=== PATIENT | female | born 1985 | race Hispanic/Latino ===

== ENCOUNTER 2018-07-24 14:30 | Outpatient (CLI) | payer MEDICAID ==
--- NOTE | 2018-07-24 15:46 | ULT ---
PELVIC ULTRASOUND: Date: 07/24/18 HISTORY: Missed . FINDINGS: Multiple transabdominal and endovaginal sonographic images of the pelvis are obtained. The uterus measures 11.3 cm x 5.1 cm x 7.6 cm. There is a fluid collection within the endometrial can al with a small amount of echogenic material seen which may represent a faintly visualized pole . Cardiac Doppler in this region does demonstrate heart tones, although the heart tones a re diminished at 65 beats/minute. The mean sac diameter is 3.19 cm, which corresponds to gestational age by ultrasound of 8 weeks and 3 days. However, the crown-rump length measures 0.82 cm, which corre sponds to gestational age by ultrasound of 6 weeks and 5 days. This does represent a discrepancy. Fin dings are suggestive of an early intrauterine gestation and the diminished heart tones may be r elated to early intrauterine gestation. Continued short interval follow-up is recommended. The ovaries demonstrate a normal sonographic appearance bilaterally. The right ovary measures 2.6 cm x 2.2 cm x 2.5 cm. The left ovary measures 2.9 cm x 2.1 cm x 2.9 cm. Doppler evaluation with spectral analysis and color flow evaluation demonstrates arterial and venous flow within the left ovary with suggestion of arterial waveform within the right ovary as well. No free fluid is seen in the cul-de-sac. IMPRESSION: Fluid collection in the endometrial canal with suggestion of a small pole. However, there is di screpancy in gestational age by measurement of the crown-rump length as well as mean sac diameter, as described above, with gestational age by crown-rump length of 6 weeks and 5 days, and gestational ag e by mean sac diameter of 8 weeks and 3 days. In addition, heart tones are detected, but are di minished at 65 beats/minute. Findings may be related to an early intrauterine gestation and continued follow-up evaluation is recommended. Ultrasound examination in 1 week is recommended. POS: [facility]
== END 2018-07-24 14:31 | disposition home or self-care (01) ==
LOC: SCSULT 14:30
PROVIDERS: ATTEND Nurse Practitioner
DX: Z34.91 Encounter for supervision of normal pregnancy, unspecified, first trimester (principal); Z3A.08 8 weeks gestation of pregnancy
CPT/HCPCS: 76856

== ENCOUNTER 2018-09-17 10:29 | Inpatient (IN) | payer MEDICAID, OTHER, SELFPAY ==
[2018-09-17 11:17] LABS: #Basophils 0.1 thou/uL (0.0-0.2); #Eosinphils 0.1 thou/uL (0.0-0.7); #Lymphocytes 0.6 thou/uL (1.20-3.40); #Monocytes 0.4 thou/uL (0.11-0.59); #Neutrophils 13.7 thou/uL (1.40-6.50); %Basophils 0.4 % (0.0-1.0); %Eosinophils 0.4 % (0.0-10.0); %Monocytes 2.6 % (0.0-10.0); %Neutrophils 92.6 % (42.0-75.0); Hemoglobin 12.7 g/dL (12.0-16.0); Mean Corpuscular Hemoglobin 31.1 pg (27.0-31.0); Mean Platelet Volume 7.4 fL (7.4-10.4); Platelet Count 218 thou/uL (130-400); RBC Distribution Width 11.7 % (11.5-14.5); White Blood Cell (WBC) Count 14.7 thou/uL (4.8-10.8)
[2018-09-17] MEDS ORDERED: Ondansetron PF 4 MG/2 ML Vial ONE ×2 (11:27→14:38)
[2018-09-17 11:28] LABS: ALT (SGPT) 23 U/L (8-55); AST (SGOT) 26 U/L (5-34); Albumin 3.8 g/dL (3.5-5.0); Alkaline Phosphatase 95 U/L (40-150); Anion Gap 13 mmol/L (10-20); BUN (Urea Nitrogen) 9 mg/dL (7.0-18.7); Bilirubin, Total 0.2 mg/dL (0.2-1.2); CK (CPK) 30 U/L (29-168); Calc. Creatinine Clearance 0 mL/min (70-130); Calcium 8.7 mg/dL (7.8-10.44); Carbon Dioxide 19 mmol/L (22-29); Chloride 106 mmol/L (98-107); Estimated GFR-MDRD Greater than 90; Globulin 2.8 g/dL (2.4-3.5); Glucose 195 mg/dL (70-105); Potassium 3.9 mmol/L (3.5-5.1); Protein, Total 6.6 g/dL (6.0-8.3); Sodium 134 mmol/L (136-145)
[2018-09-17] MEDS ORDERED: Ketorolac Tromethamine 30 MG/ML VIAL ONE (11:29)
[2018-09-17 11:33] LABS: CKMB 0.4 ng/mL (0-6.6); Troponin I Less than 0.010 ng/mL (< 0.028)
[2018-09-17 11:45] LABS: Lactate 1.48 mmol/L (0.50-2.20)
--- NOTE | 2018-09-17 12:17 | RAD ---
PORTABLE CHEST: HISTORY: Chest pain with deep breaths. FINDINGS: Heart size is upper limits of normal for technique. Mediastinal structures are unremarkable. The ariana ngs are clear of any infiltrates. IMPRESSION: No acute changes. Borderline heart size. POS: [facility]
[2018-09-17 12:33] LABS: BHCG - Serum POSITIVE (NEGATIVE); Pregs Control Background? CLEAR/WHITE (CLR/WHITE); Pregs Control Bar Appear? YES (CONTROL BAR)
[2018-09-17] MEDS ORDERED: Acetaminophen 500 MG TAB ONE (12:36)
[2018-09-17 12:59] LABS: Bilirubin Negative (Negative); Blood, Urine Large (Negative); Clarity CLEAR (Clear); Glucose, Urine (Dipstick) Negative (Negative); Leukocyte Moderate (Negative); Nitrite Negative (Negative); Protein, Urine (Dipstick) Negative (Neg-Trace); Specific Gravity, Urine 1.012 (1.002-1.036); Urobilinogen 0.2 mg/dL (0.2-1.0)
[2018-09-17 13:01] LABS: Bacteria/HPF None Seen HPF (None Seen); Hyaline Casts/LPF 0-3 HYALINE CAST LPF (0-3 Hyaline); Squamous Epithelial 0-3 HPF (0-3)
[2018-09-17] MEDS ORDERED: Iopamidol 370 76% 100 ML VIAL ONE (14:26)
--- NOTE | 2018-09-17 14:31 | CT ---
CT ANGIO OF CHEST PERFORMED WITH INTRAVENOUS CONTRAST ENHANCEMENT WITH 3D RECONSTRUCTIONS: HISTORY: Shortness of breath with deep breathing. FINDINGS: The lungs showed some subsegmental atelectatic change in the bases. No pulmonary nodules or pleural effusions. There is no significant mediastinal or hilar adenopathy noted. The thoracic aorta is normal in calibe r. Some motion artifact degrades detail. There is fair pulmonary artery opacification. Peripheral e mboli are not excluded, but I do not see evidence for pulmonary embolus. Visualized liver parenchyma shows no focal findings. The gallbladder has been removed. IMPRESSION: No CT evidence for pulmonary embolus. POS: [facility]
[2018-09-17] MEDS ORDERED: PROPOFOL 200 MG/20 ML VIAL ONE (14:38)
[2018-09-17] MEDS ORDERED: Lidocaine 1% PF 5 ML VIAL ONE (14:38)
--- NOTE | 2018-09-17 15:11 | ULT ---
PELVIC ULTRASOUND: HISTORY: The patient has tried medication after being diagnosed with ectopic . The patient has been bleeding for 15 days. COMPARISON: A 07/24/2018 examination which showed an intrauterine gestational sac with a small pole which wa s discrepant in size as compared to the sac. FINDINGS: There is no ectopic demonstrated on that examination. Real-time imaging of the pelvis was obtained transabdominally. This shows a cystic structure in the uterus is no longer present. The uterus measures 4.3 x 5.7 x 10.9 cm. Endometrium is slightly thick ened and measuring as much as 1.7 cm. The right and left adnexa are normal in appearance. IMPRESSION: Slightly heterogeneous endometrium. The gestational sac and pole seen on the previous examinat ion are no longer visualized. The heterogeneity to the endometrium could indicate some retained prod ucts, it could [id number] residual blood. No signs of ectopic. POS: [facility]
[2018-09-17] MEDS ORDERED: Fentanyl 100 MCG/2 ML VIAL ONE ×2 (15:27→18:01)
[2018-09-17] MEDS ORDERED: Ondansetron PF 4 MG/2 ML Vial IVP PRN (15:49)
[2018-09-17] MEDS ORDERED: Clindamycin/D5W 900 mg/50 ml Premix Bag ONE (15:58)
[2018-09-17] MEDS ORDERED: Gentamicin 80 MG/2 ML VIAL ONE (15:58)
--- NOTE | 2018-09-17 16:16 | PDOC.FPRHP ---
- History of Present Illness Chief Complaint: chills, sweats History of Present Illness: This is a 33 female w/ 2 previous C/S who comes in with chief complaint of chills and sweats for 3 days. Says she has had a Tmax of 102.1 at home. Has been having abdominal pain during this time. She has had nausea but no vomiting. Has had 3 episodes of diarrhea per day for the last few days. She states she is having some chest pain which comes and goes, substernal, nothing makes it better or worse, no radiation. She was given misoprostil for missed on 08/28/[address] London and has had vaginal bleeding since she started per her report. 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 denies: palpitation, edema Gastrointestinal: reports: nausea, diarrhea, abdominal pain. denies: vomiting, GI bleeding Genitourinary: denies: dysuria, polyuria Skin: denies: rashes, lesions Musculoskeletal: denies: pain, tenderness Neurological: denies: numbness, syncope, weakness Psychological: denies: anxiety, depression - Vital signs BP: 106/65 HR: 90 RR: 16 Tmax: 98.5 Pox: 99% on RA - Physical Exam Constitutional: NAD, awake, alert and oriented HEENT: normocephalic and atraumatic, PERRLA Neck: supple Heart: RRR, normal S1/S2, no murmurs/rubs/gallops, pulses present Lungs: CTAB, no respiratory distress, good air movement Abdomen: soft, non-tender, bowel sounds present Musculoskeletal: normal structure, normal tone Neurological: no focal deficit, CN II-XII intact Skin: no rash/lesions, capillary refill <2 seconds Heme/Lymphatic: other (see hpi) FMR H&P: Results - Labs Result Diagrams: 09/17/18 10:50 09/17/18 10:50 Lab results: WBC 14.7 thou/uL (4.8-10.8) H 09/17/18 10:50 Hgb 12.7 g/dL (12.0-16.0) 09/17/18 10:50 Hct 38.5 % (36.0-47.0) 09/17/18 10:50 MCV 94.0 fL (78.0-98.0) 09/17/18 10:50 Plt Count 218 thou/uL (130-400) 09/17/18 10:50 Neutrophils % 92.6 % (42.0-75.0) H 09/17/18 10:50 Sodium 134 mmol/L (136-145) L 09/17/18 10:50 Potassium 3.9 mmol/L (3.5-5.1) 09/17/18 10:50 Chloride 106 mmol/L (98-107) 09/17/18 10:50 Carbon Dioxide 19 mmol/L (22-29) L 09/17/18 10:50 BUN 9 mg/dL (7.0-18.7) 09/17/18 10:50 Creatinine 0.71 mg/dL (0.6-1.1) 09/17/18 10:50 Glucose 195 mg/dL (70-105) H 09/17/18 10:50 Lactic Acid 2.9 mmol/L (0.5-2.2) H 09/17/18 11:33 Calcium 8.7 mg/dL (7.8-10.44) 09/17/18 10:50 Total Bilirubin 0.2 mg/dL (0.2-1.2) 09/17/18 10:50 AST 26 U/L (5-34) 09/17/18 10:50 ALT 23 U/L (8-55) 09/17/18 10:50 Alkaline Phosphatase 95 U/L (40-150) 09/17/18 10:50 Creatine Kinase 30 U/L (29-168) 09/17/18 10:50 CK-MB (CK-2) 0.4 ng/mL (0-6.6) 09/17/18 10:50 Serum Total Protein 6.6 g/dL (6.0-8.3) 09/17/18 10:50 Albumin 3.8 g/dL (3.5-5.0) 09/17/18 10:50 Urine Ketones Trace mg/dL (Negative) H 09/17/18 12:31 Urine Blood Large (Negative) H 09/17/18 12:31 Urine Nitrite Negative (Negative) 09/17/18 12:31 Ur Leukocyte Esterase Moderate (Negative) H 09/17/18 12:31 Urine RBC 11-20 HPF (0-3) H 09/17/18 12:31 Urine WBC 7-10 HPF (0-3) H 09/17/18 12:31 Ur Squamous Epith Cells 0-3 HPF (0-3) 09/17/18 12:31 Urine Bacteria None Seen HPF (None Seen) 09/17/18 12:31 FMR H&P: A/P - Problem List (1) Missed Current Visit: Yes Status: Acute Code(s): O02.1 - MISSED (2) Endometritis Current Visit: Yes Status: Acute Code(s): N71.9 - INFLAMMATORY DISEASE OF UTERUS, UNSPECIFIED - Plan # Endometritis 2/2 missed - TVUS shows possible retained products but pole as noted on prior US, no ectopic - hcg 235, has been on misoprostil 2-3 weeks - start Gentamcin, Clinda - Bcx, Ucx taken - Will take patient to OR for D&C # Sepsis 2/2 endometritis - fluid resuscitation - Abx as above - wbc 14.7, P90, fever at home Fluids: LR, s/p 2L in Ed Diet: NPO until OR PPx: scds Dispo: 24 hours pending clinical status FMR H&P: Upper Level - Plan Date/Time: 09/17/18 1614 I, [], have evaluated this patient and agree with findings/plan as outlined by internet systems administrator resident. Pertinent changes/additions are listed here. Attending Addendum - Attending Addendum Date/Time: 09/17/18 [id number] I personally evaluated the patient and discussed the management with Dr. Delgado. I agree with the History, Examination, Assessment and Plan documented above with any addition or exceptions noted below. 33 yo LAF s/p misprostol 2 weeks ago for presumed missed AB. Presents with flu like sxs. and cramping. USG c/w possible retained POCs. Will start ABX and proceed with D&C. BC and UC pending. Consent on chart, risks and benefits discussed.
[2018-09-17 16:26] LABS: Lactic Acid 1.1 mmol/L (0.5-2.2)
[2018-09-17] MEDS ORDERED: Oxytocin 10 UNITS/ML VIAL ONE ×2 (18:26→18:27)
[2018-09-17] MEDS ORDERED: Misoprostol 200 MCG TAB ONE (18:31)
[2018-09-17] MEDS ORDERED: Morphine 2 MG/ML SYRINGE SLOW IVP PRN (19:40)
[2018-09-17] MEDS: Lactated Ringer's 1,000 ML IV SCH (20:47)
[2018-09-17] MEDS: Clindamycin/D5W 900 MG in Premix Bag 1 BAG IVPB SCH (20:47)
[2018-09-17] MEDS: Gentamicin 80 MG/100 ML BAG IVPB SCH (21:35)
--- NOTE | 2018-09-17 22:51 | OP ---
DATE OF PROCEDURE: 09/17/2018 SURGEON: Danilo Crouch MD T[facility]ILLER SURGEON: Amadou Delgado MD, resident physician. PREOPERATIVE DIAGNOSES: 1. Postabortal endometritis. 2. Suspected retained products of conception. POSTOPERATIVE DIAGNOSES: 1. Postabortal endometritis. 2. Suspected retained products of conception. PROCEDURE: Suction curettage. ANESTHESIA: IV sedation with LMA. ESTIMATED BLOOD LOSS: 150 mL. COMPLICATIONS: None. FINDINGS: 1. 8 to 10-week size uterus. 2. Suspected products of conception obtained upon suction curettage. MEDICATIONS GIVEN: 1. 40 units of Pitocin in 500 mL IV fluid. 2. Cytotec 800 mg per rectum postoperatively. TECHNIQUE IN DETAIL: After good IV sedation with LMA was achieved, the patient was prepped and drape d in the usual sterile fashion in the dorsal lithotomy position using the Edwin stirrups. Bimanual e xam was performed after the bladder was drained. The uterus was 8 to 10 weeks in size. A single-tooth tenaculum was used to grasp the cervix after a weighted speculum was placed. The cerv ix was widely open and required no dilation. A 9-mm curved Vacurette was placed in the uterine cavit y to the level of the fundus. Suction curettage was then performed. A moderate amount of products o f conception were obtained. A sharp curet was then passed through all quadrants of the uterus and no remaining placental fragments were seen. The patient was given Pitocin 40 units at the beginning of the suction curettage and 800 mg of Cytotec was placed rectally as she had had some oozing after the procedure. A small amount of bleeding was seen from a tenaculum site and this was stopped using a s gurpreet suture of 3-0 chromic. Sponge, lap, and needle counts were correct at the conclusion of the procedure. The patient tolerate d the procedure well and was awakened and taken to the recovery room in good condition.
[2018-09-18] MEDS: Clindamycin/D5W 900 MG in Premix Bag 1 BAG IVPB SCH ×4 (00:08→23:49)
[2018-09-18] MEDS: Ibuprofen 800 MG TAB PO PRN ×4 (00:39→20:57)
[2018-09-18] MEDS: Gentamicin 80 MG/100 ML BAG IVPB SCH ×4 (01:27→23:49)
[2018-09-18] MEDS: Lactated Ringer's 1,000 ML IV SCH ×3 (05:41→15:10)
[2018-09-18 05:48] LABS: Anion Gap 8 mmol/L (10-20); BUN (Urea Nitrogen) 5 mg/dL (7.0-18.7); Calc. Creatinine Clearance 0 mL/min (70-130); Carbon Dioxide 23 mmol/L (22-29); Chloride 108 mmol/L (98-107); Estimated GFR-MDRD Greater than 90; Glucose 97 mg/dL (70-105); Potassium 3.5 mmol/L (3.5-5.1); Sodium 135 mmol/L (136-145)
[2018-09-18 05:51] LABS: #Eosinphils 0.1 thou/uL (0.0-0.7); #Lymphocytes 1.8 thou/uL (1.20-3.40); #Monocytes 0.9 thou/uL (0.11-0.59); #Neutrophils 6.3 thou/uL (1.40-6.50); %Basophils 0.2 % (0.0-1.0); %Eosinophils 0.8 % (0.0-10.0); %Lymphocytes 20.3 % (21.0-51.0); %Monocytes 9.5 % (0.0-10.0); %Neutrophils 69.2 % (42.0-75.0); Hemoglobin 9.8 g/dL (12.0-16.0); Mean Corpuscular HGB CONC 32.3 g/dL (32.0-36.0); Mean Corpuscular Hemoglobin 30.3 pg (27.0-31.0); Mean Corpuscular Volume 93.8 fL (78.0-98.0); Mean Platelet Volume 7.7 fL (7.4-10.4); Platelet Count 125 thou/uL (130-400); RBC Distribution Width 11.7 % (11.5-14.5); Red Blood Cell (RBC) Count 3.24 mill/uL (4.20-5.40); White Blood Cell (WBC) Count 9.1 thou/uL (4.8-10.8)
--- NOTE | 2018-09-18 06:47 | PDOC.EVN ---
Event Note - Event Note Event Note: POD#1 Resting, AMADO from earlier resolving post Motrin. VS: 110/61, 101, 18, 98.7 Abdomen soft and NT. Lochia small. Plan: Cont. Gent/Clinda x 3 doses postop, likely home this PM.
[2018-09-18] MEDS: Acetaminophen 500 MG TAB PO PRN ×3 (08:45→23:50)
[2018-09-18 10:30] VITALS: BMI 27.1
[2018-09-18] MEDS ORDERED: HYDROcodone/Acetaminophen 5/325 mg Tablet PO PRN (15:37)
[2018-09-18] MEDS ORDERED: Clindamycin/D5W 900 MG in Premix Bag 1 BAG IVPB SCH (22:00)
[2018-09-18] MEDS ORDERED: Gentamicin 80 MG/2 ML VIAL IM SCH (22:00)
[2018-09-19] MEDS ORDERED: Penicillin G 2.5 MILL.units 2.5 MILL.UNITS in Premix Bag 1 BAG IVPB SCH ×2 (06:00→08:00)
--- NOTE | 2018-09-19 08:07 | PRG ---
DATE OF SERVICE: 09/19/2018 TIME OF SERVICE: 0715 SUBJECTIVE: The patient is resting comfortably. She complains only of slight discomfort. She has b een afebrile throughout the day and her white count decreased yesterday. Her white count has come do wn to normal limits. PHYSICAL EXAMINATION: VITAL SIGNS: female resting comfortably. ABDOMEN: Reveals a slightly tender suprapubic area. No rebound, no guarding, no CVA tenderness. __ ___ LABORATORY DATA: Microbiology is positive for gram positive cocci in chains. Characterization [facility] IMPRESSION: Status post septic with possible group A strep in two blood cultures. PLAN: We will continue clindamycin, added to antibiotic pictures and we will discuss with Dr. Crouch who is taking over the OB Hospitalist. He may decide to consult ID regarding IV versus oral a ntibiotic therapy and possible discharge home.
[2018-09-19] MEDS: Clindamycin/D5W 900 MG in Premix Bag 1 BAG IVPB SCH ×2 (08:15→16:02)
[2018-09-19] MEDS: Ibuprofen 800 MG TAB PO PRN ×2 (08:19→20:51)
[2018-09-19] MEDS: Lactated Ringer's 1,000 ML IV SCH ×3 (09:28→18:08)
[2018-09-19] MEDS: Gentamicin 80 MG/100 ML BAG IVPB SCH ×2 (09:57→16:37)
[2018-09-19] MEDS: Penicillin G 2.5 MILL.units 2.5 MILL.UNITS in Premix Bag 1 BAG IVPB SCH ×2 (12:24→17:47)
--- NOTE | 2018-09-19 15:56 | PDOC.EVN ---
Event Note - Event Note Event Note: BC x2 return each with Peptostreptococcus. VSS She remains afebrile. Discussed with Dr. Larkin by phone. Will discontinue PCN, Gent and Clinda tonight. Will begin Amoxicillin 1 gram q 8 hours and discharge in AM.
[2018-09-19 16:53] LABS: Reference Lab Name LABCORP
[2018-09-19 16:54] LABS: Ref Lab Test Ordered AERO + ANAEROB SUSCP
[2018-09-19] MEDS: AMOXicillin 250 MG CAP PO SCH (20:51)
[2018-09-20] MEDS: AMOXicillin 250 MG CAP PO SCH (03:35)
--- NOTE | 2018-09-20 06:41 | PDOC.EVN ---
Event Note - Event Note Event Note: Feels very well since discontinuing IV ABX last PM. No c/o. VSS AF. Abdomen is soft. Path c/w POCs, no molar changes seen. Plan; DC home on Amoxicillin 1 gm PO TID x 10 days, RTC with Dr. London in 2 weeks.
[2018-09-20 07:45] VITALS: BP 123/67; TEMP 97.8
[2018-09-20] MEDS: Ibuprofen 800 MG TAB PO PRN (07:45)
--- NOTE | 2018-09-20 08:03 | DIS ---
DATE OF ADMISSION: 09/17/2018 DATE OF DISCHARGE: 09/20/2018 ADMITTING DIAGNOSES: 1. Incomplete . 2. Sepsis. DISCHARGE DIAGNOSES: 1. Incomplete . 2. Sepsis. 3. Status post suction dilatation and curettage and IV antibiotic therapy. ADMITTING PHYSICIAN: Danilo Crouch M.D. REGULAR PHYSICIAN: Sukhwinder London M.D. PATIENT DESCRIPTION/HOSPITAL COURSE: Ms. Ram is a 33-year-old G4, P3 who present ed to the emergency room on 09/17/2018 complaining of 24 hours of flu-like symptoms with temperature to 102 at home. She also reported some chest pain. Her workup for the chest pain was negative in [facility] emergency room. She gave a history of having had a missed AB 2 weeks ago for which she was given m isoprostol. She had some bleeding and thought that perhaps she had passed the tissue. An ultrasound done in the ER demonstrated what looked like retained products. Her white count on adm ission was 14. The patient was taken to the operating room where a D&C was performed and products of conception were obtained. She was started on gentamicin and clindamycin IV preoperatively. Blood cultures were obtained and these returned positive for anaerobic Peptostreptococcus. She was c ontinued on gentamicin and clindamycin for 48 hours and over the last 12 hours IV penicillin was adde d. I spoke with Dr. Larkin regarding this patient's clinical situation and he said that after 48 hours he r IV antibiotics could be discontinued and she could be sent home on amoxicillin. She was discharged home on the morning of 09/20/2018 after remaining afebrile and her white count had dropped to 9. e felt well at the time of discharge. She was given a prescription for amoxicillin 1 gram p.o. q.8 h ours for 10 days. She was given precautions and told to follow up with Dr. London in 2 weeks.
== END 2018-09-20 11:03 | disposition home or self-care (01) | DRG 770 ==
LOC: ERS 10:29 → 3SW 15:45
PROVIDERS: ADMIT Obstetrics & Gynecology; ATTEND Obstetrics & Gynecology
PROC: 10D17ZZ Extraction of Products of Conception, Retained, Via Natural or Artificial Opening (ICD-10-PCS; principal; 2018-09-17)
DX: O03.37 Sepsis following incomplete spontaneous abortion (principal); A40.8 Other streptococcal sepsis
CPT/HCPCS: 36415; 71045; 71275; 76856; 80048; 80053; 81003; 81015; 82553; 83605; 84484; 84702; 84703; 85025; 85379; 86850; 86900; 86901; 87040; 87076; 87086; 87149; 87804; 88305; 93005; 96361; 96365; 96375; J1580; J1885; J2001; J2270; J2405; J2540; J2590; J2704; J3010; J3490